=== PATIENT | male | born 1930 | race Caucasian/White ===

== ENCOUNTER 2021-04-01 11:05 | Emergency (ER) | payer MEDICARE, OTHER ==
[2021-04-01 13:07] LABS: CLARITY,URINE CLEAR (CLEAR); COLOR,URINE YELLOW (YELLOW); LEUKOCYTE ESTERASE ,URINE NEGATIVE (NEGATIVE); NITRITE,URINE POSITIVE (NEGATIVE); PROTEIN,URINE DIPSTICK 1+ (NEGATIVE)
[2021-04-01 13:08] LABS: KETONES,URINE NEGATIVE (NEGATIVE); URINE UROBILINOGEN 0.2 mg/dL (0.2 - 1)
[2021-04-01 13:09] LABS: BACTERIA,URINE MODERATE /HPF; EPITHELIAL CELLS,URINE RARE /LPF; RBC,URINE >50 /HPF (0-5); WBC,URINE (MAN) 0-5 /HPF (0-5)
[2021-04-02] MEDS ORDERED: ANTIBIOTIC28.4 GM (16:32)
== END 2021-04-01 14:23 | disposition home or self-care (01) ==
LOC: ER 11:16
DX: U07.1 COVID-19 (principal); Z46.6 Encounter for fitting and adjustment of urinary device; R33.9 Retention of urine, unspecified; N40.1 Benign prostatic hyperplasia with lower urinary tract symptoms
CPT/HCPCS: 51702; 81001; 87040; 87086; 99284; U0002; 51700

== ENCOUNTER 2021-04-07 08:28 | Inpatient (IN) | payer MEDICARE, OTHER ==
[~2021-04-07] VITALS: Ht 182.9 cm; Wt 69.4 kg
[~2021-04-07 08:28] MED LIST: ANTIBIOTIC28.4 GM
[2021-04-07] MEDS ORDERED: CEFUROXIME250 MG PO (09:15)
[2021-04-07] MEDS ORDERED: LACTULOSE20 GM/30 M PO (09:15)
[2021-04-07] MEDS ORDERED: CEFDINIR300 MG PO (09:15)
[2021-04-07] MEDS ORDERED: PHENAZOPYRIDIN100 MG PO (09:15)
[2021-04-07] MEDS ORDERED: ACETAMINOPHEN325 M1 PO (09:15)
[2021-04-07] MEDS ORDERED: DOCUSATE SODIU100 MG PO (09:15)
[2021-04-07] MEDS ORDERED: SODIUM CHLORIDE 0.9% 50ML 50 ML ONE (09:31)
[2021-04-07] MEDS ORDERED: PIPERACILLIN/TAZOBACTAM 3.375 GM VIAL ONE (09:31)
[2021-04-07] MEDS ORDERED: GENTAMICIN 80MG/NS 100 ML 200 ML IV ONE (09:31)
[2021-04-07] MEDS ORDERED: SODIUM CHLORIDE 0.9% 1000ML 1,000 ML ONE (09:31)
[2021-04-07] MEDS ORDERED: BELLADONNA/OPIUM 30 MG SUPP RC ONE (10:02)
[2021-04-07] MEDS ORDERED: IOPAMIDOL 300MG/ML 50ML INFUS..BTL IV ONE (10:03)
[2021-04-07] MEDS ORDERED: PROPOFOL IV EMULSION 10 MG/ML 20 ML VIAL ONE (12:03)
[2021-04-07] MEDS ORDERED: PHENYLEPHRINE HCL 1% 10 MG/ML VIAL ONE (12:03)
[2021-04-07] MEDS ORDERED: ONDANSETRON HCL INJ 2MG/ML 2ML 2 MG/ML VIAL ONE (12:03)
[2021-04-07] MEDS ORDERED: LIDOCAINE HCL 2% LOCAL INJ 5 ML SDV VIAL INJ ONE (12:03)
[2021-04-07] MEDS ORDERED: SEVOFLURANE INHAL SOLN 250 ML PEN BTL ONE (12:03)
[2021-04-07] MEDS ORDERED: EPHEDRINE SULFATE INJ 50 MG/ML VIAL ONE (12:03)
[2021-04-07] MEDS ORDERED: POVIDONE IODINE 0.05% 0.05 % ML PO ONE (12:03)
[2021-04-07] MEDS ORDERED: DIPHENHYDRAMINE HCL 25 MG CAP PO PRN (12:45)
[2021-04-07] MEDS ORDERED: ACETAMINOPHEN/CODEINE 300MG - 30MG TAB PO PRN (12:45)
[2021-04-07] MEDS ORDERED: B&O 60MG R/S 60 MG SUPP PR PRN (12:45)
[2021-04-07] MEDS ORDERED: PHENAZOPYRIDINE HCL 100 MG TAB PO PRN (12:45)
[2021-04-07] MEDS ORDERED: ONDANSETRON HCL INJ 2MG/ML 2ML 2 MG/ML VIAL IV PRN (12:45)
[2021-04-07] MEDS ORDERED: FENTANYL CITRATE/PF 100MCG/2 ML INJ ONE (13:09)
[2021-04-07 13:34] LABS: BASOPHILS % 0.5 % (0.0-1.0); EOSINOPHILS # (AUTO) 0.1 (0.0-0.4); EOSINOPHILS % 2.1 % (0.0-6.0); HEMOGLOBIN 9.6 g/dL (14.0-18.0); LYMPHOCYTES # (AUTO) 0.9 (1.0-3.2); LYMPHOCYTES % 13.3 % (18.0-39.1); MEAN CORPUSCULAR HEMOGLOBIN 29.6 pg (28-32); MEAN CORPUSCULAR VOLUME 95.7 fL (81-99); MONOCYTES # (AUTO) 0.3 (0.2-0.8); MONOCYTES % 4.1 % (4.4-11.3); NEUTROPHILS # (AUTO) 5.2 (2.1-6.9); NEUTROPHILS % 79.7 % (38.7-80.0); PLATELET COUNT 257 x10e3/uL (140-360); RED BLOOD COUNT 3.24 x10e6/uL (4.3-5.7); RED CELL DISTRIBUTION WIDTH 13.2 % (11.7-14.4)
[2021-04-07 13:56] LABS: ANION GAP 11.2 mmol/L (8-16); CREATININE, SERUM 0.91 mg/dL (0.72-1.25); POTASSIUM 4.2 mmol/L (3.5-5.1)
[2021-04-07 15:42] VITALS: BP 112/68
[2021-04-07 16:32] VITALS: BP 112/68
[2021-04-07 16:37] VITALS: BP 112/68
[2021-04-07] MEDS: DOCUSATE SODIUM 100 MG CAP PO SCH (17:10)
[2021-04-07] MEDS: D5.45%NS/KCL 20MEQ 1,000 ML IV SCH (17:14)
[2021-04-07] MEDS: PIPERACILLIN/TAZOBACTAM 2.25 GM in SODIUM CHLORIDE 0.9% 50ML 50 ML IV SCH ×2 (17:20→22:15)
[2021-04-07 20:00] VITALS: BP 98/60
[2021-04-08] VITALS (7 sets, daily range): BP systolic 93–113; BP diastolic 53–77
[2021-04-08] MEDS: PIPERACILLIN/TAZOBACTAM 2.25 GM in SODIUM CHLORIDE 0.9% 50ML 50 ML IV SCH ×4 (04:12→21:28)
[2021-04-08 05:56] LABS: BASOPHILS % 0.2 % (0.0-1.0); EOSINOPHILS % 0.2 % (0.0-6.0); HEMATOCRIT 27.6 % (38.2-49.6); HEMOGLOBIN 8.7 g/dL (14.0-18.0); LYMPHOCYTES # (AUTO) 0.5 (1.0-3.2); LYMPHOCYTES % 8.8 % (18.0-39.1); MEAN CORPUSCULAR HEMOGLOBIN 29.7 pg (28-32); MEAN CORPUSCULAR HGB CONC 31.5 g/dL (31-35); MEAN CORPUSCULAR VOLUME 94.2 fL (81-99); MONOCYTES # (AUTO) 0.4 (0.2-0.8); MONOCYTES % 6.4 % (4.4-11.3); NEUTROPHILS # (AUTO) 5.2 (2.1-6.9); NEUTROPHILS % 84.2 % (38.7-80.0); PLATELET COUNT 279 x10e3/uL (140-360); RED BLOOD COUNT 2.93 x10e6/uL (4.3-5.7); RED CELL DISTRIBUTION WIDTH 13.2 % (11.7-14.4)
[2021-04-08 06:17] LABS: ANION GAP 11.3 mmol/L (8-16); CALCIUM 8.9 mg/dL (8.4-10.2); POTASSIUM 4.3 mmol/L (3.5-5.1)
[2021-04-08 06:43] LABS: CREATININE, SERUM 0.81 mg/dL (0.72-1.25)
[2021-04-08 10:30] LABS: THYROID STIMULATING HORMONE 1.228 uIU/mL (0.350-4.940)
[2021-04-08] MEDS: DOCUSATE SODIUM 100 MG CAP PO SCH ×2 (11:40→17:31)
[2021-04-08] MEDS: D5.45%NS/KCL 20MEQ 1,000 ML IV SCH ×2 (11:40→18:55)
[2021-04-08] MEDS: IRON SUCROSE 100 MG in SODIUM CHLORIDE 0.9% 100 ML 100 ML IV SCH (12:00)
[2021-04-09] VITALS (7 sets, daily range): BP systolic 92–115; BP diastolic 54–67
[2021-04-09] MEDS: PIPERACILLIN/TAZOBACTAM 2.25 GM in SODIUM CHLORIDE 0.9% 50ML 50 ML IV SCH ×4 (03:14→21:21)
[2021-04-09 05:46] LABS: BASOPHILS % 0.7 % (0.0-1.0); EOSINOPHILS # (AUTO) 0.2 (0.0-0.4); EOSINOPHILS % 3.5 % (0.0-6.0); HEMATOCRIT 30.7 % (38.2-49.6); HEMOGLOBIN 9.5 g/dL (14.0-18.0); LYMPHOCYTES # (AUTO) 1.2 (1.0-3.2); LYMPHOCYTES % 26.9 % (18.0-39.1); MEAN CORPUSCULAR HEMOGLOBIN 29.8 pg (28-32); MEAN CORPUSCULAR HGB CONC 30.9 g/dL (31-35); MEAN CORPUSCULAR VOLUME 96.2 fL (81-99); MONOCYTES # (AUTO) 0.4 (0.2-0.8); MONOCYTES % 10.3 % (4.4-11.3); NEUTROPHILS # (AUTO) 2.5 (2.1-6.9); NEUTROPHILS % 58.4 % (38.7-80.0); PLATELET COUNT 275 x10e3/uL (140-360); RED BLOOD COUNT 3.19 x10e6/uL (4.3-5.7); RED CELL DISTRIBUTION WIDTH 13.5 % (11.7-14.4)
[2021-04-09 06:04] LABS: ANION GAP 13.5 mmol/L (8-16); CALCIUM 9.2 mg/dL (8.4-10.2); CREATININE, SERUM 0.91 mg/dL (0.72-1.25); POTASSIUM 4.5 mmol/L (3.5-5.1)
[2021-04-09] MEDS ORDERED: ONDANSETRON HCL 4 MG ORAL DISINTEGRATING TAB PO PRN (08:15)
[2021-04-09] MEDS: DOCUSATE SODIUM 100 MG CAP PO SCH ×2 (09:00→17:00)
[2021-04-09] MEDS ORDERED: MEMANTINE 10 MG TAB PO SCH (09:00)
[2021-04-09] MEDS ORDERED: SODIUM CHLORIDE 0.9% 250ML 250 ML ONE (09:43)
[2021-04-09] MEDS: IRON SUCROSE 100 MG in SODIUM CHLORIDE 0.9% 100 ML 100 ML IV SCH (11:26)
[2021-04-09] MEDS: BALSAM PERU/CASTOR OIL 60 GM OINT...G. TP SCH (20:56)
[2021-04-09] MEDS: MEMANTINE 10 MG TAB PO SCH (20:56)
[2021-04-10] VITALS (9 sets, daily range): BP systolic 81–117; BP diastolic 58–64
[2021-04-10] MEDS: PIPERACILLIN/TAZOBACTAM 2.25 GM in SODIUM CHLORIDE 0.9% 50ML 50 ML IV SCH (04:18)
[2021-04-10 07:02] LABS: BASOPHILS % 0.7 % (0.0-1.0); EOSINOPHILS # (AUTO) 0.1 (0.0-0.4); EOSINOPHILS % 2.5 % (0.0-6.0); HEMATOCRIT 29.2 % (38.2-49.6); HEMOGLOBIN 9.2 g/dL (14.0-18.0); LYMPHOCYTES # (AUTO) 1.2 (1.0-3.2); LYMPHOCYTES % 20.9 % (18.0-39.1); MEAN CORPUSCULAR HEMOGLOBIN 29.4 pg (28-32); MEAN CORPUSCULAR HGB CONC 31.5 g/dL (31-35); MEAN CORPUSCULAR VOLUME 93.3 fL (81-99); MONOCYTES # (AUTO) 0.5 (0.2-0.8); MONOCYTES % 9.7 % (4.4-11.3); NEUTROPHILS # (AUTO) 3.6 (2.1-6.9); NEUTROPHILS % 65.7 % (38.7-80.0); PLATELET COUNT 267 x10e3/uL (140-360); RED BLOOD COUNT 3.13 x10e6/uL (4.3-5.7); RED CELL DISTRIBUTION WIDTH 13.5 % (11.7-14.4)
[2021-04-10 07:46] LABS: CALCIUM 9.3 mg/dL (8.4-10.2); CREATININE, SERUM 0.86 mg/dL (0.72-1.25)
[2021-04-10] MEDS ORDERED: BALSAM PERU/CASTOR OIL 60 GM OINT...G. TP SCH (09:00)
[2021-04-10] MEDS: DOCUSATE SODIUM 100 MG CAP PO SCH ×2 (09:00→17:00)
[2021-04-10] MEDS: MEMANTINE 10 MG TAB PO SCH ×2 (09:00→21:28)
[2021-04-10] MEDS: IRON SUCROSE 100 MG in SODIUM CHLORIDE 0.9% 100 ML 100 ML IV SCH (11:00)
[2021-04-10] MEDS: BALSAM PERU/CASTOR OIL 60 GM OINT...G. TP SCH (21:28)
[2021-04-11] VITALS (7 sets, daily range): BP systolic 94–121; BP diastolic 60–74
[2021-04-11 06:27] LABS: BASOPHILS % 0.5 % (0.0-1.0); EOSINOPHILS # (AUTO) 0.2 (0.0-0.4); EOSINOPHILS % 3.3 % (0.0-6.0); HEMATOCRIT 30.8 % (38.2-49.6); HEMOGLOBIN 9.8 g/dL (14.0-18.0); LYMPHOCYTES # (AUTO) 1.4 (1.0-3.2); LYMPHOCYTES % 24.7 % (18.0-39.1); MEAN CORPUSCULAR HEMOGLOBIN 29.9 pg (28-32); MEAN CORPUSCULAR HGB CONC 31.8 g/dL (31-35); MEAN CORPUSCULAR VOLUME 93.9 fL (81-99); MONOCYTES # (AUTO) 0.6 (0.2-0.8); MONOCYTES % 10.1 % (4.4-11.3); NEUTROPHILS # (AUTO) 3.5 (2.1-6.9); NEUTROPHILS % 60.9 % (38.7-80.0); PLATELET COUNT 277 x10e3/uL (140-360); RED BLOOD COUNT 3.28 x10e6/uL (4.3-5.7); RED CELL DISTRIBUTION WIDTH 13.6 % (11.7-14.4)
[2021-04-11 06:39] LABS: ANION GAP 13.1 mmol/L (8-16); CALCIUM 9.3 mg/dL (8.4-10.2); CREATININE, SERUM 0.82 mg/dL (0.72-1.25); POTASSIUM 4.1 mmol/L (3.5-5.1)
[2021-04-11] MEDS: MEMANTINE 10 MG TAB PO SCH ×2 (09:01→21:06)
[2021-04-11] MEDS: DOCUSATE SODIUM 100 MG CAP PO SCH ×2 (09:01→16:32)
[2021-04-11] MEDS: BALSAM PERU/CASTOR OIL 60 GM OINT...G. TP SCH (21:06)
[2021-04-12] VITALS (7 sets, daily range): BP systolic 96–124; BP diastolic 61–75
[2021-04-12] MEDS: DOCUSATE SODIUM 100 MG CAP PO SCH ×2 (08:35→16:32)
[2021-04-12] MEDS: MEMANTINE 10 MG TAB PO SCH ×2 (08:35→21:00)
[2021-04-12] MEDS: BALSAM PERU/CASTOR OIL 60 GM OINT...G. TP SCH (20:39)
[2021-04-13] VITALS: BP 120/75
[2021-04-13 04:00] VITALS: BP 115/81
[2021-04-13 08:00] VITALS: BP 122/66
[2021-04-13 08:24] VITALS: BP 122/66
[2021-04-13] MEDS: DOCUSATE SODIUM 100 MG CAP PO SCH (10:18)
[2021-04-13] MEDS: MEMANTINE 10 MG TAB PO SCH (10:18)
[2021-04-13] MEDS ORDERED: NAMENDA5 MG PO (11:14)
[2021-04-13] MEDS ORDERED: Tylenol #3 PO (11:15)
[2021-04-13 11:30] VITALS: BP 107/75
== END 2021-04-13 12:00 | disposition home or self-care (01) | DRG 713 ==
LOC: OR 08:28 → PACU V 12:37 → MED/SURG 16:00
PROVIDERS: ADMIT Internal Medicine; ATTEND Internal Medicine
PROC: 0VB03ZX Excision of Prostate, Percutaneous Approach, Diagnostic (ICD-10-PCS; 2021-04-07)
PROC: 0V508ZZ Destruction of Prostate, Via Natural or Artificial Opening Endoscopic (ICD-10-PCS; principal; 2021-04-07 10:30)
PROC: BT141ZZ Fluoroscopy of Kidneys, Ureters and Bladder using Low Osmolar Contrast (ICD-10-PCS; 2021-04-07 10:30)
PROC: BV49ZZZ Ultrasonography of Prostate and Seminal Vesicles (ICD-10-PCS; 2021-04-07 10:30)
DX: N40.1 Benign prostatic hyperplasia with lower urinary tract symptoms (principal); N13.30 Unspecified hydronephrosis; N39.0 Urinary tract infection, site not specified; N13.8 Other obstructive and reflux uropathy; F02.81 Dementia in other diseases classified elsewhere, unspecified severity, with behavioral disturbance; F05 Delirium due to known physiological condition; E44.0 Moderate protein-calorie malnutrition; R33.8 Other retention of urine; G30.9 Alzheimer's disease, unspecified; R31.0 Gross hematuria; S37.30XS Unspecified injury of urethra, sequela; R97.20 Elevated prostate specific antigen [PSA]; Z87.442 Personal history of urinary calculi; Z86.16 Personal history of COVID-19; Z72.0 Tobacco use; I10 Essential (primary) hypertension; D64.9 Anemia, unspecified; R63.4 Abnormal weight loss; Z68.20 Body mass index [BMI] 20.0-20.9, adult; L89.151 Pressure ulcer of sacral region, stage 1
CPT/HCPCS: 36415; 71046; 74420; 76872; 76998; 80048; 82607; 82746; 83540; 83735; 84443; 84466; 85025; 88305; 93005; 94799; 97139; 99251; C1758; J1580; J1756; J2001; J2370; J2405; J2543; J3010; J7030; J7050